=== PATIENT | female | born 1985 | race Caucasian/White ===

== ENCOUNTER 2019-02-04 18:23 | Emergency (ER) | payer BC, SELFPAY ==
[2019-02-04 18:23] VITALS: BP 108/87; PULSE 137; RESP 16; TEMP 36
--- NOTE | 2019-02-04 18:26 | DI.RAD_ITS ---
SYMPTOM/DIAGNOSIS: PAIN, SWELLING, INJURY LEFT KNEE: There is a comminuted fracture of the lateral tibial plateau. There is severe comminution as well as severe depression of fracture fragments. A component of the fracture extends transversely and obliquely through the proximal tibial metaphysis. There is a nondisplaced fracture of the proximal fibula. The distal femur and patella appear intact. The hemarthrosis is seen. IMPRESSION: Comminuted intra-articular fracture of the tibia with severe depression and fragmentation of the lateral tibial plateau. A nondisplaced fracture of the proximal fibula.
[2019-02-04] MEDS: Lactated Ringers 1,000 ML 1000 ML IV (18:32)
--- NOTE | 2019-02-04 18:33 | NUR.NOTE ---
ivf infusing neck collar in place Nursing Note:
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
--- NOTE | 2019-02-04 19:01 | DI.RAD_ITS ---
SYMPTOM/DIAGNOSIS; PAIN, TRAUMA, SWELLING LEFT TIBIA AND FIBULA: Comparison is made with knee films. Again noted is the fracture extending transversely through the proximal tibial metaphysis and severe comminution and depression of the lateral tibial plateau as well as proximal fibular fractures. No fractures are seen distally in the tibia and fibula. There is no ankle mortise widening. The visualized portions of the tarsal region are unremarkable. IMPRESSION: Comminuted proximal tibial fracture and nondisplaced proximal fibular fracture.
--- NOTE | 2019-02-04 19:28 | NUR.NOTE ---
pt at ct Nursing Note:
--- NOTE | 2019-02-04 19:30 | DI.CT_ITS ---
SYMPTOM/DIAGNOSIS: FRACTURE, PAIN CT LEFT KNEE: 3-D reconstructions were also performed. There is a fracture extending transversely and obliquely through the proximal tibial metaphysis which shows only slight displacement. There is severe comminution of the lateral tibial plateau with severe depression up to 2 cm. The fracture involves the tibial spines. There is a proximal fibular fracture which shows tiny comminuted fragment and is not significantly displaced. There is a large lipohemarthrosis. The joint spaces are well maintained. IMPRESSION: Proximal tibial fracture with severe depression and fragmentation of the lataeral tibial plateau. Proximal fibular fracture.
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
--- NOTE | 2019-02-04 19:45 | DI.CT_ITS ---
SYMPTOM/DIAGNOSIS: FRACTURE KNEE CT ANGIOGRAM LOWER EXTREMITIES: CT angiography was performed with multi slice acquisition and multi planar and 3D reconstruction. Images were performed from the aortic bifurcation through the toes. The vessels are normal in diameter throughout. There is no evidence of occlusion or dissection. There is no evidence of an arterial injury. The lower portions of the liver, right kidney, bowel, bladder, uterus and ovaries are unremarkable. There is a trace amount of fluid in the lower pelvis which may be within normal limits in this age group. There are comminuted fractures of the proximal tibia as well as fibula and hemarthrosis IMPRESSION: Comminuted tibial plateau fracture and proximal fibular fracture. No evidence of vascular injury.
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
--- NOTE | 2019-02-04 20:03 | DI.CT_ITS ---
SYMPTOM/DIAGNOSIS: TRAUMA, DISTRACTING INJURY, ETOH CERVICAL SPINE CT: No fracture is identified. The alignment appears normal. There is no paraspinal hematoma. The discs appear intact. There is no airway narrowing. IMPRESSION: Negative CT of the cervical spine.
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
[2019-02-04] MEDS: HYDROmorphone 2 MG/ML VIAL (20:36)
[2019-02-04 20:38] VITALS: BP 129/78; PULSE 124; RESP 14; O2SAT 98
--- NOTE | 2019-02-04 20:40 | DI.RAD_ITS ---
SYMPTOM/DIAGNOSIS: TRAUMA PORTABLE SEMI-ERECT CHEST: There are leads overlying the chest. The heart size is normal. There is no mediastinal widening. No pneumothorax, rib or spine fractures visible. The lungs appear clear. IMPRESSION: Negative chest x-ray.
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
[2019-02-04 21:28] LABS: Abs Immature Grans 0.03 k/cumm (0.0-0.09); Absolute Basophil Count 0.03 k/cumm (0.0-0.2); Absolute Eosinophil Count 0.03 k/cumm (0.0-0.7); Absolute Lymphocyte Count 2.08 k/cumm (1.2-3.4); Absolute Monocyte Count 1.07 k/cumm (0.11-0.7); Absolute Neutrophil Count 12.75 k/cumm (1.2-6.7); Basophils % 0.2; Eosinophils % 0.2; HCT 34.7 % (36.0-46.0); Immature Grans % 0.2; Mean Corp. HGB Concentration 34.6 g/dL (32.0-36.0); Mean Corpuscular Hemoglobin 31.6 pg (27.0-33.0); Mean Corpuscular Volume 91.3 fL (80-95); Mean Platelet Volume 9.2 fL (8.0-11.0); Monocytes % 6.7; Neutrophils % 79.7; Platelet Count 291 x1000/uL (130-400); RBC Distribution Width 12.8 % (11.7-14.6)
[2019-02-04 21:31] LABS: Prothrombin Time 9.9 sec (9.3-11.0)
[2019-02-04 21:35] LABS: ALT 14 U/L (12-78); AST 11 U/L (15-37); Albumin 3.5 g/dL (3.4-5.0); Alkaline Phosphatase 55 U/L (46-116); Anion Gap 14.7 mmol/L (3-11); BUN 7 mg/dL (7-18); Bilirubin, Total 0.3 mg/dL (0.2-1.0); CO2 20.3 mmol/L (21.0-32.0); CREATININE 0.71 mg/dL (0.55-1.02); Calcium 8.2 mg/dL (8.5-10.1); Chloride 103 mmol/L (98-107); ETHANOL BLOOD 43.1 mg/dL (<3); Glucose 94 mg/dL (70-100); Potassium 3.7 mmol/L (3.5-5.1); Sodium 138 mmol/L (136-145); Total Protein 6.8 g/dL (6.4-8.2)
[2019-02-05] MEDS: Omnipaque 350 MG/ML 100 ML BTL IJ (00:06)
[2019-02-05] MEDS: Omnipaque 350 MG/ML 50 ML BTL IJ (00:07)
== END 2019-02-04 21:23 | disposition short-term general hospital (02) ==
PROVIDERS: Student in an Organized Health Care Education/Training Program; Emergency Provider Emergency Medicine
DX: S82.402A Unspecified fracture of shaft of left fibula, initial encounter for closed fracture (principal); S82.832A Other fracture of upper and lower end of left fibula, initial encounter for closed fracture; W16.312A Fall into other water striking water surface causing other injury, initial encounter; Y93.17 Activity, water skiing and wake boarding; M25.462 Effusion, left knee; R20.2 Paresthesia of skin; F10.99 Alcohol use, unspecified with unspecified alcohol-induced disorder; Y90.2 Blood alcohol level of 40-59 mg/100 ml
CPT/HCPCS: 73562; 75635; 80053; 86850; 86900; 86901; 96361; 96374; 99253; 99285; 71045; 72125; 73590; 73700; 80320; 85025; 85610; J3490; Q9967